=== PATIENT | female | born 1985 | race Caucasian/White ===

== ENCOUNTER 2018-01-20 20:18 | Emergency (ER) | payer SELFPAY ==
[2018-01-20 20:24] VITALS: BP 151/90
[2018-01-20] MEDS ORDERED: DEPAKOTE125 M1 PO ×2 (20:26)
[2018-01-20] MEDS ORDERED: CITALOPRAM HBR10 MG PO ×2 (20:27→20:35)
[2018-01-20] MEDS ORDERED: TRAZODONE HCL50 M1 PO (20:27)
[2018-01-20] MEDS ORDERED: DIVALPROEX SOD250 M2 PO ×2 (20:35)
--- NOTE | 2018-01-20 20:36 | ED GENERAL ADULT ---
History of Present Illness General Chief Complaint: General Adult Stated Complaint: MED REFILL Source: patient, old records Exam Limitations: no limitations Vital Signs & Intake/Output Vital Signs & Intake/Output Vital Signs Date Time Temp Pulse Resp B/P B/P Pulse O2 O2 Flow FiO2 Mean Ox Delivery Rate 01/21 2024 91 20 151/90 98 Allergies Coded Allergies: cephalexin (SWELLING, ITCHY RASH 11/12/17) Reconcile Medications Citalopram Hydrobromide (Citalopram HBr) 10 MG TABLET 1 TAB PO DAILY ANXIETY (Reported) Citalopram Hydrobromide (Citalopram HBr) 10 MG TABLET 1 TAB PO DAILY BIPOLAR Divalproex Sodium (Depakote) 125 MG TABLET.DR 1 TAB PO QHS BIPOLAR (Reported) Divalproex Sodium (Depakote) 125 MG TABLET.DR 250 MG PO DAILY BIPOLAR ( Reported) Divalproex Sodium 250 MG TABLET.DR 1 TAB PO DAILY BIPOLAR Divalproex Sodium 250 MG TABLET.DR 2 TAB PO QHS BIPOLAR Trazodone HCl 50 MG TABLET 1 TAB PO QPM SLEEP (Reported) Triage Note: PER PT HERE FOR DEPAKOTE AND CELEXA REFILLS. Triage Nurses Notes Reviewed? yes : No Patient currently breastfeeds: No HPI: 32F PMH bipolar disorder presents for medication refill. No complaints, feels well, at baseline. Urgent care refused to fill her medications, and she cannot get a follow up appointment for weeks. Requests Depakote and Celexa refills. Has her current bottles with her, and med-rec confirms dosing. Past History Travel History Traveled to [place] past 21 day No Medical History Any Pertinent Medical History? see below for history Neurological: NONE EENT: NONE Cardiovascular: NONE Respiratory: NONE Gastrointestinal: NONE Hepatic: NONE Renal: NONE Musculoskeletal: NONE Psychiatric: bipolar disease Endocrine: NONE Blood Disorders: NONE Cancer(s): NONE COUNSELOR SUPERVISOR/Reproductive: PCOS Surgical History Surgical History: none Psychosocial History What is your primary language Spanish Tobacco Use: Never used Family History Hx Contributory? No Review of Systems Review of Systems Constitutional: Reports: no symptoms. EENTM: Reports: no symptoms. Respiratory: Reports: no symptoms. Cardiovascular: Reports: no symptoms. GI: Reports: no symptoms. Genitourinary: Reports: no symptoms. Musculoskeletal: Reports: no symptoms. Skin: Reports: no symptoms. Neurological/Psychological: Reports: no symptoms. Hematologic/Endocrine: Reports: no symptoms. Immunologic/Allergic: Reports: no symptoms. All Other Systems: Reviewed and Negative Physical Exam Physical Exam General Appearance: well developed/nourished, no apparent distress Head: atraumatic, normal appearance Eyes: Bilateral: normal appearance. Ears, Nose, Throat: normal pharynx, hearing grossly normal Neck: normal inspection, supple, full range of motion Respiratory: normal breath sounds, no respiratory distress Cardiovascular: regular rate/rhythm Gastrointestinal: soft, non-tender Back: normal inspection, normal range of motion Extremities: normal inspection, normal range of motion Neurologic/Psych: awake, alert, oriented x 3, normal mood/affect Skin: intact, normal color, warm/dry Core Measures ACS in differential dx? No CVA/TIA Diagnosis: No Sepsis Present: No Sepsis Focused Exam Completed? No Progress Differential Diagnoses I considered the following diagnoses in my evaluation of the patient: bipolar disorder Plan of Care: Will refill medications. Initial ED EKG: none Departure Departure Disposition: HOME OR SELF CARE Condition: Stable Clinical Impression Primary Impression: Medication refill Referrals: Patient Has No Primary Care Dr (PCP/Family) Additional Instructions: Follow up with your PCP. Return to ER if new or worsening symptoms. Departure Forms: Customer Survey General Discharge Information Prescriptions: Current Visit Scripts Citalopram Hydrobromide (Citalopram HBr) 1 TAB PO DAILY #30 TAB Divalproex Sodium 1 TAB PO DAILY #30 TAB Divalproex Sodium 2 TAB PO QHS #60 TAB Critical Care Note Critical Care Note Critical Care Time: non-applicable
== END 2018-01-20 20:42 ==
LOC: ERH 20:18
DX: Z76.0 Encounter for issue of repeat prescription (principal); F31.9 Bipolar disorder, unspecified
CPT/HCPCS: 99281

== ENCOUNTER 2018-03-19 08:05 | Emergency (ER) | payer SELFPAY ==
[~2018-03-19] VITALS: Ht 152.4 cm; Wt 90.7 kg
[~2018-03-19 08:05] MED LIST: CITALOPRAM HBR10 MG PO; DEPAKOTE125 M1 PO; DIVALPROEX SOD250 M2 PO; TRAZODONE HCL50 M1 PO
--- NOTE | 2018-03-19 08:42 | ED GENERAL ADULT ---
History of Present Illness General Chief Complaint: Seizure Stated Complaint: BIBA ?SEIZURE LIKE ACTIVITY WHILE SLEEPING Source: patient, oleg Exam Limitations: no limitations Vital Signs & Intake/Output Vital Signs & Intake/Output Vital Signs Date Time Temp Pulse Resp B/P B/P Pulse O2 O2 Flow FiO2 Mean Ox Delivery Rate 03/19 1301 64 18 110/62 98 Room Air 03/19 1024 98.0 69 16 123/60 96 Room Air 03/19 0813 97.2 80 16 120/77 97 Room Air Allergies Coded Allergies: cephalexin (SWELLING, ITCHY RASH 11/12/17) Reconcile Medications Citalopram Hydrobromide (Citalopram HBr) 10 MG TABLET 1 TAB PO DAILY BIPOLAR Divalproex Sodium (Depakote) 500 MG TABLET.DR 1 TAB PO BID BIPOLAR 2 ( Reported) Divalproex Sodium (Depakote ER) 250 MG TAB.ER.24H 1 TAB PO BID take with 500mg bid Triage Note: PT BIBA FROM HOME WITH ?SEIZURE-LIKE ACTIVITY. SPOUSE STATES THAT SHE HIT HIM IN HIS SLEEP AND SHE HAD SHAKINGLIKE MOTIONS. NO HX OF SEIZURES. CURRENTLY HAS A VEGA. Triage Nurses Notes Reviewed? yes Onset: Abrupt Duration: resolved prior to arrival Timing: no prior history : No Patient currently breastfeeds: No HPI: 32-year-old female with history of bipolar type II and Depakote presents to the emergency department with her fianc reports that about 8 AM this morning he woke up to patient thrashing around in bed with her arms flexed and eyes closed, stating that this was occurring for at least 1 minute and at the end of this he witnessed patient coughing on her own spit. He states after that she had fallen back asleep as a nothing it happened. He had called the ambulance and at that time patient had woken up and sat up in bed and appeared to be confused/ disoriented reporting that her age was 25. Patient states she does not recall this occurring. The next thing she recalls is waking up in the ambulance. She reports having headache 8 out of 10 in some nausea, however has not had any vomiting. Patient has been on Depakote 500 mg twice daily since December 2017, sees [facility] for medication and has not had Depakote level drawn at this point. She states that last night was the first night she had not taken the Depakote because she did not have it with her and they were out. She states that this morning she has not taken as well. Past History Travel History Traveled to [place] past 21 day No Medical History Any Pertinent Medical History? see below for history Neurological: NONE EENT: NONE Cardiovascular: NONE Respiratory: NONE Gastrointestinal: NONE Hepatic: NONE Renal: NONE Musculoskeletal: NONE Psychiatric: bipolar disease Endocrine: NONE Blood Disorders: NONE Cancer(s): NONE AVIONICS SYSTEMS ENGINEER/Reproductive: PCOS Surgical History Surgical History: none Psychosocial History What is your primary language Ecuadorean Tobacco Use: Current Daily Use Daily Tobacco Use Amount/Type: => 5 Cigarettes daily Family History Hx Contributory? No Review of Systems Review of Systems Constitutional: Reports: see HPI. EENTM: Reports: no symptoms. Respiratory: Reports: see HPI. Cardiovascular: Reports: no symptoms. GI: Reports: no symptoms. Genitourinary: Reports: no symptoms. Musculoskeletal: Reports: no symptoms. Skin: Reports: no symptoms. Neurological/Psychological: Reports: see HPI. Hematologic/Endocrine: Reports: no symptoms. Immunologic/Allergic: Reports: no symptoms. All Other Systems: Reviewed and Negative Physical Exam Physical Exam General Appearance: well developed/nourished, alert, awake, lethargic Head: atraumatic, normal appearance Eyes: Bilateral: normal appearance, PERRL, EOMI, other (red light reflex present). Ears, Nose, Throat: hearing grossly normal, left side of tongue with bitemarks and blood Neck: normal inspection, full range of motion Respiratory: normal breath sounds, chest non-tender, no respiratory distress, lungs clear Cardiovascular: regular rate/rhythm, normal peripheral pulses Peripheral Pulses: 3+ radial (R), 3+ radial (L) Gastrointestinal: soft, non-tender Back: normal inspection, normal range of motion Extremities: normal inspection, normal capillary refill, normal range of motion, no edema Neurologic/Psych: no motor/sensory deficits, awake, alert, oriented x 3, normal gait, normal mood/affect, 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 No CVA/TIA Diagnosis: No Sepsis Present: No Sepsis Focused Exam Completed? No Progress Differential Diagnoses I considered the following diagnoses in my evaluation of the patient: [seizure, withdrawal from depakote, night terror, brain tumor] Plan of Care: Orders Procedure Date/time Status Regular Diet 03/19 D Active PROLACTIN 03/19 856 Complete HUMAN BETA HCG SCREEN 03/19 851 Complete DEPAKOTE LEVEL 03/19 851 Complete COMPREHENSIVE METABOLIC PANEL 03/19 851 Complete CBC WITHOUT DIFFERENTIAL 03/19 851 Complete Current Medications Sig/Bernabe Start time Last Medication Dose Stop Time Status Admin Divalproex Sodium 500 MG ONCE ONE 03/19 1215 CAN (Depakote) 03/19 1216 Laboratory Tests 03/19/18 0856: Anion Gap 19 H, Estimated GFR > 60, BUN/Creatinine Ratio 20.0, Glucose 109 H, Calcium 9.8, Total Bilirubin 0.3, AST 27, ALT 37, Alkaline Phosphatase 50, Total Protein 8.1, Albumin 4.7, Globulin 3.4, Albumin/Globulin Ratio 1.4, Prolactin 26.9 H, Total Beta HCG NEGATIVE, CBC w Diff NO MAN DIFF REQ, RBC 4.99, MCV 92.0 , MCH 30.8, MCHC 33.4, RDW 13.4, MPV 9.0, Gran % 66.7, Lymphocytes % 22.6, Monocytes % 4.6, Eosinophils % 5.6 H, Basophils % 0.5, Absolute Granulocytes 6.1, Absolute Lymphocytes 2.1, Absolute Monocytes 0.4, Absolute Eosinophils 0.5, Absolute Basophils 0, Valproic Acid 24.7 L 03/19/18 0854: Prolactin Cancelled 32-year-old female with bipolar type II on Depakote with reported seizure-like activity this morning by jono. On exam patient's left tongue appears freshly bitten. Neuro exam unremarkable. Patient reports feeling relief of headache and nausea immediately after IV Tylenol and Zofran. Head CT and chest x-ray unremarkable. Prolactin elevated at 26.9. Valproic acid subtherapeutic at 24.7. Spoke with neurologist who had reported increasing patient's dose to Depakote 750 mg twice daily and to follow-up tomorrow with neurologist to continue monitoring for therapeutic levels. Patient had 500 mg Depakote still at home, prescribed 250 mg and advised to take along with the 500 mg. Advised her to take 750 mg daily. Follow-up tomorrow with neurologist for further assessment and management. Increase fluid intake over the next couple of days. Return to the emergency department with any new or worsening symptoms. Diagnostic Imaging: Viewed by Me: Radiology Read. Discussed w/RAD: Radiology Read. Radiology Impression: PATIENT: DELIA CORDOVA PRESENT AGE : 32 PATIENT ACCOUNT NO: [id number] : 87 LOCATION: [facility] ORDERING PHYSICIAN: Carol Ann LEIJA SERVICE DATE: 03/19/18 EXAM TYPE: RAD - XRY- CHEST XRAY, TWO VIEWS EXAMINATION: XR CHEST CLINICAL INFORMATION: Seizure-like activity with coughing. COMPARISON: None TECHNIQUE: 2 views of the chest were obtained. FINDINGS: No significant abnormality is noted involving the heart, lungs, mediastinum, bony thorax or soft tissues. There is no focal consolidation. No evidence for aspiration. IMPRESSION: Unremarkable examination. DICTATED BY: Marietta Martínez MD DATE/TIME DICTATED:03/19/181031 [facility] TEACHER:ELOINA DATE/TIME TRANSCRIBED:03/19/181031 CONFIDENTIAL, DO NOT COPY WITHOUT APPROPRIATE AUTHORIZATION. <Electronically signed in Other Vendor System> SIGNED BY: Marietta Martínez MD 03/19/181035, PATIENT: DELIA CORDOVA PRESENT AGE: 32 PATIENT ACCOUNT NO: [id number] : 87 LOCATION: [facility] ORDERING PHYSICIAN: Carol Ann LEIJA SERVICE DATE: 03/19/18 EXAM TYPE: CAT - CT HEAD WO IV CONTRAST EXAMINATION: CT HEAD WITHOUT CONTRAST CLINICAL INFORMATION: Seizure-like activity. COMPARISON: None TECHNIQUE: Contiguous axial imaging was performed from the skull base to vertex without intravenous administration of contrast. DLP: 615.94 mGy-cm FINDINGS: There is no evidence of acute intracranial hemorrhage or territorial infarction. No abnormal mass effect or midline shift is seen. [place] to white matter differentiation is well preserved. No extra-axial fluid collections are identified. The ventricles are normal in size. There is no abnormal attenuation within the brain parenchyma. The osseous structures and soft tissues are normal. Several of the ethmoid air cells are opacified and there is mild mucosal thickening in the sphenoid sinus. The remainder of the visualized portions of the paranasal sinuses and the mastoid air cells are well aerated. IMPRESSION: No acute intracranial pathology. Sinus disease involving the ethmoid air cells and sphenoid sinus. DICTATED BY: Lucy Gonzales MD DATE/TIME DICTATED:03/19/181049 [facility] TEACHER:ELOINA DATE/TIME TRANSCRIBED:03/19/181049 CONFIDENTIAL, DO NOT COPY WITHOUT APPROPRIATE AUTHORIZATION. <Electronically signed in Other Vendor System> SIGNED BY: Lucy Gonzales MD 03/19/18 1057 Initial ED EKG: none Departure Departure Disposition: HOME OR SELF CARE Condition: Stable Clinical Impression Primary Impression: Seizure-like activity Referrals: Kiana CAMPBELL,Fernando Corado Patient Has No Primary Care Dr (PCP/Family) Additional Instructions: Increased dose of Depakote to 750 mg twice daily. Follow-up with neurologist tomorrow in office. Return to the emergency department with any new or worsening symptoms, or any concerns for well-being. Departure Forms: Customer Survey General Discharge Information Prescriptions: Current Visit Scripts Divalproex Sodium (Depakote ER) 1 TAB PO BID #30 TAB Critical Care Note Critical Care Note Critical Care Time: non-applicable ED Attending Observation Initial Observation Note: I have seen and personally examined DELIA CORDOVA on 03/19/18 at 1124. I agree with the current emergency department documentation. The disposition (admission or discharge) is uncertain at this time, she needs a period of observation for the following reason(s): The ED Nurse caring for this patient has been personally informed as to what the patient is being observed for.
[2018-03-19 09:14] LABS: ABSOLUTE BASOPHIL COUNT 0 /CUMM (0.0-0.2); ABSOLUTE EOSINOPHIL COUNT 0.5 /CUMM (0.0-0.7); ABSOLUTE GRANULOCYTE CT 6.1 /CUMM (1.4-6.5); ABSOLUTE LYMPH COUNT 2.1 /CUMM (1.2-3.4); ABSOLUTE MONOCYTE COUNT 0.4 /CUMM (0.10-0.60); BASOPHIL % 0.5 % (0.0-2.0); EOSINOPHIL % 5.6 % (0-5); GRANULOCYTE % 66.7 % (42.2-75.2); HEMATOCRIT 45.9 % (37-47); MEAN CORPUSCULAR HGB 30.8 PG (27.0-31.0); MEAN CORPUSCULAR HGB CONC 33.4 G/DL (33.0-37.0); PLATELET COUNT 288 /CUMM (130-400); RBC DISTRIBUTION WIDTH 13.4 % (11.5-14.5); RED BLOOD CELL CT 4.99 /CUMM (4.20-5.40); WHITE BLOOD CELL COUNT 9.1 /CUMM (4.8-10.8)
--- NOTE | 2018-03-19 10:36 | RADIOLOGY REPORT ---
EXAMINATION: XR CHEST CLINICAL INFORMATION: Seizure-like activity with coughing. COMPARISON: None TECHNIQUE: 2 views of the chest were obtained. FINDINGS: No significant abnormality is noted involving the heart, lungs, mediastinum, bony thorax or soft tissues. There is no focal consolidation. No evidence for aspiration. IMPRESSION: Unremarkable examination.
--- NOTE | 2018-03-19 10:57 | CT SCAN REPORT ---
EXAMINATION: CT HEAD WITHOUT CONTRAST CLINICAL INFORMATION: Seizure-like activity. COMPARISON: None TECHNIQUE: Contiguous axial imaging was performed from the skull base to vertex without intravenous administration of contrast. DLP: 615.94 mGy-cm FINDINGS: There is no evidence of acute intracranial hemorrhage or territorial infarction. No abnormal mass effect or midline shift is seen. Duke to white matter differentiation is well preserved. No extra-axial fluid collections are identified. The ventricles are normal in size. There is no abnormal attenuation within the brain parenchyma. The osseous structures and soft tissues are normal. Several of the ethmoid air cells are opacified and there is mild mucosal thickening in the sphenoid sinus. The remainder of the visualized portions of the paranasal sinuses and the mastoid air cells are well aerated. IMPRESSION: No acute intracranial pathology. Sinus disease involving the ethmoid air cells and sphenoid sinus.
[2018-03-19] MEDS ORDERED: DEPAKOTE500 M1 PO (12:22)
[2018-03-19] MEDS ORDERED: DEPAKOTE ER250 M1 PO (12:53)
[2018-03-19 13:01] VITALS: BP 110/62
== END 2018-03-19 13:08 ==
LOC: ERH 08:05
PROVIDERS: Physician Assistant
DX: R56.9 Unspecified convulsions (principal); E11.9 Type 2 diabetes mellitus without complications
CPT/HCPCS: 71046; 96374; 96375; J0131; J1885; J2405